=== PATIENT | female | born 1945 | race American Indian/Alaskan Native ===

== ENCOUNTER 2016-06-21 07:44 | Day surgery (SDC) | payer MEDICARE ==
[~2016-06-21 07:44] MED LIST: ANCEF/STERILE WATER 2 GM/20 ML 2 GM/20 ML SYRINGE IV NR; GELFOAM TP ONE; HEPARIN 10,000 UNITS/10 ML ONE; MARCAINE 0.25% INFILTRATI ONE; MARCAINE 0.5% 30 ML INFILTRATI ONE; NACL 0.9% 1000 ML 1,000 ML IV SCH; NACL 0.9% 250ML 500 ML ONE; NACL ONE; PAPAVERINE ONE; PROTAMINE SULFATE ONE; THROMBIN (BOVINE) TP ONE; XYLOCAINE 1% MPF 5 mL ONE; XYLOCAINE 1%/ EPI 1:100,000 INFILTRATI ONE
[2016-06-21] MEDS ORDERED: VERSED IV NR (08:00)
[2016-06-21] MEDS ORDERED: PEPCID PO NR (08:00)
[2016-06-21] MEDS ORDERED: DILAUDID IV PRN (08:55)
--- NOTE | 2016-06-21 08:56 | Anesthesia Day of Surgery ---
Anesthesia Day of Surgery - Day of Surgery Patient Examined: Yes Patient H&P Reviewed: Yes Patient is NPO: Yes
--- NOTE | 2016-06-21 08:56 | Anesthesia Consultation ---
Anesthesia Consult and Med Hx Date of service: 06/21/16 - Airway Anesthetic Teeth Evaluation: Good ROM Head & Neck: Adequate Mental/Hyoid Distance: Adequate Mallampati Class: Class II Intubation Access Assessment: Probably Good - Pulmonary Exam CTA: Yes - Cardiac Exam Cardiac Exam: RRR - Pre-Operative Health Status ASA Pre-Surgery Classification: ASA4 Nerve Block: IS - Pulmonary Hx Pneumonia: Yes - Cardiovascular System Hx Hypertension: Yes (30YRS) Hx Heart Attack/AMI: Yes (NSTEMI 1 month ago) Hx Percutaneous Transluminal Coronary Angioplasty (PTCA): Yes (x2) - Endocrine Hx End Stage Renal Disease: Yes (dialysis MWF) Hx Insulin Dependent Diabetes: Yes - Hematic Hx Anemia: Yes - Other Systems Hx Cancer: Yes
[2016-06-21] MEDS ORDERED: MARCAINE 0.25% INFILTRATI ONE (08:58)
[2016-06-21] MEDS ORDERED: XYLOCAINE 1% 20 mL ONE (08:58)
[2016-06-21] MEDS ORDERED: VERSED ONE (09:37)
[2016-06-21] MEDS ORDERED: SUBLIMAZE ONE (09:38)
[2016-06-21] MEDS ORDERED: ePHEDrine SULFATE ONE (10:23)
[2016-06-21] MEDS ORDERED: DIPRIVAN 10 MG/ML IV ONE (10:34)
[2016-06-21] MEDS ORDERED: NACL 0.9% IR ONE (10:51)
[2016-06-21] MEDS ORDERED: XYLOCAINE 1%/ EPI 1:100,000 INFILTRATI ONE (10:52)
[2016-06-21] MEDS ORDERED: HEPARIN 10,000 UNITS/10 ML 1,000 UNIT in NACL 0.9% 250ML 250 ML IR ONE (10:54)
[2016-06-21] MEDS ORDERED: MARCAINE 0.5% INFILTRATI ONE (10:54)
[2016-06-21] MEDS ORDERED: HEPARIN 10,000 UNITS/10 ML ONE (11:42)
--- NOTE | 2016-06-21 11:53 | Operative Report ---
Operative Report Operative Report: Date of procedure: 06/21/2016 Pre-operative diagnosis: Endstage renal disease Post-operative diagnosis: Same Procedure name(s): Left brachiobasilic fistula creation stage I. Surgeon: Gerald Ramirez MD, RPVI Terrazzo Polisher Helper: None Anesthesia: Gen./local Findings #1 adequate sized basilic vein. #2 adequate size brachial artery. #3 palpable thrill in the fistula. #4 palpable radial pulse. #5 adequate hemostasis. Specimens: None EBL: 10 mL IV fluids: 500 mL Urine output: 0 Disposition: The recovery Procedure Patient was brought to the operating room and laid on the table in supine position. After adequate sedation anesthesia was achieved the basilic vein was marked with an ultrasound. The patient was prepped and draped in usual sterile fashion. The ends reverse incision over the basilic vein right below the elbow was made using #15 blade. Subcutaneous tissue was divided with Bovie electrocautery. The basilic vein was located and dissected for the length of the incision. All branches were ligated using 4-0 silk ties. Once adequate length of the vein was dissected and the vein was completely mobilized attention was turned to the brachial artery. The brachial artery was dissected free and encircled with Vesseloops proximally and distally. Patient received 2000 units of heparin. The vein was disconnected distally below the elbow and irrigated with heparinized saline. The vein dilated very well. The artery was occluded with vessel loops proximally and distally the arteriotomy was made using #11 blade and Hobson scissors. The distal end of the vein was spatulated using Hobson scissors and anastomosis was created using 6-0 Prolene running suture. Prior to completion of the anastomosis back bleeding maneuvers were performed and there was good backbleeding from both sides size of the artery. Anastomosis was then was completed after it was irrigated with heparinized saline. Once the vessel loops were released there was strong thrill in the fistula and no bleeding. The wound was then closed using 3-0 Vicryl subcutaneous and 4-0 Monocryl subcuticular closure. Patient tolerated procedure well. At the end of the case all instrument, sponge, and needle counts were correct
--- NOTE | 2016-06-21 11:56 | Post Operative Note ---
Procedure: Date of procedure: 06/21/2016 Pre-operative diagnosis: Endstage renal disease Post-operative diagnosis: Same Procedure name(s): Right brachiobasilic fistula creation stage I. Surgeon: Gerald Ramirez MD, RPVI Application Defense Manager: None Anesthesia: Gen./local Findings #1 adequate sized basilic vein. #2 adequate size brachial artery. #3 palpable thrill in the fistula. #4 palpable radial pulse. #5 adequate hemostasis. Specimens: None EBL: 10 mL IV fluids: 500 mL Urine output: 0 Disposition: The recovery
--- NOTE | 2016-06-21 11:59 | Short Stay Summary ---
Short Stay Documentation - History H&P: obtained from office - Allergies and Medications Current Medications: Allergies Sulfa (Sulfonamide Antibiotics) Allergy (Verified 06/19/16 09:59) Itching adhesive tape Adverse Reaction (Verified 06/19/16 09:59) pulls her skin off paper hospital tape Home Medications Medication Instructions Recorded Confirmed Last Taken Type Aspirin [Adult Low Dose Aspirin EC] 81 mg PO QDAY 06/19/16 06/19/16 06/20/16 09: 00 History AtorvaSTATin [Lipitor] 80 mg PO QDAY 06/19/16 06/21/16 06/20/16 20:00 History Carvedilol [Carvedilol] 12.5 mg PO BID 06/19/16 06/21/16 06/20/16 09:00 History HYDROcodone/APAP 5-325 [[place] 1 each PO Q6HR PRN 06/19/16 06/21/16 06/14/16 History 5/325] Insulin Aspart Prot/Aspart 10 units SQ AC 06/19/16 06/21/16 06/20/16 21:00 History [Novolog Mix 70/30] 8 units Losartan [Cozaar] 50 mg PO QDAY 06/19/16 06/21/16 06/21/16 06:00 History Pantoprazole [Protonix] 40 mg PO QDAY 06/19/16 06/19/16 06/20/16 09:00 History Ticagrelor [Brilinta] 90 mg PO QDAY 06/19/16 06/19/16 06/20/16 09:00 History Active Medications Famotidine (Pepcid) 20 mg PO PREOP NR Stop: 06/21/16 23:59 Last Admin: 06/21/16 08:57 Dose: 20 mg Hydromorphone HCl (Dilaudid) 0.25 mg IV Q10MIN PRN PRN Reason: Pain, Moderate (4-6) Stop: 06/21/16 16:00 Cefazolin Sodium (Ancef/Sterile Water 2 Gm/20 Ml) 2 gm in 20 mls @ 80 mls/hr IV PREOP NR PRN Reason: Protocol Stop: 06/21/16 23:59 Sodium Chloride (Nacl 0.9% 1000 Ml) 1,000 mls @ 42 mls/hr IV DIRECT NATHAN Last Admin: 06/21/16 09:15 Dose: 42 mls/hr Midazolam HCl (Versed) 2 mg IV PREOP NR Stop: 06/21/16 23:59 Last Admin: 06/21/16 09:09 Dose: 2 mg - Brief post op/procedure progress note Procedure: Date of procedure: 06/21/2016 Pre-operative diagnosis: Endstage renal disease Post-operative diagnosis: Same Procedure name(s): Right brachiobasilic fistula creation stage I. Surgeon: Gerald Ramirez MD, RPVI Direct Response Consultant: None Anesthesia: Gen./local Findings #1 adequate sized basilic vein. #2 adequate size brachial artery. #3 palpable thrill in the fistula. #4 palpable radial pulse. #5 adequate hemostasis. Specimens: None EBL: 10 mL IV fluids: 500 mL Urine output: 0 Disposition: The recovery - Disposition Condition at discharge: Good Disposition: DISCHARGED TO HOME OR SELFCARE Short Stay Discharge Plan Activity: advance as tolerated (no heavy lifting with right arm for 6 weeks) Diet: renal Wound: open to air Additional Instructions: Please make an appointment with Dr. Ramirez in 2 weeks. Follow up with: ROSITA RIVERA MD [Primary Care Provider] - 7 Days
[2016-06-21] MEDS ORDERED: PERCOCET 5/325 PO NR (12:19)
--- NOTE | 2016-06-21 12:52 | Post Anesthesia Evaluation ---
- Post Anesthesia Evaluation Patient Participated: Yes Airway Patent: Yes Stable Respiratory Function: Yes Nausea/Vomiting: No Temp > 96.8F: Yes Pain Manageable: Yes Adequeate Hydration: Yes Anesthesia Complications: No Block Receding Appropriately: Not Applicable Patient on Ventilator: No
[2016-06-21] MEDS ORDERED: NORMODYNE IV NR ×2 (13:27→13:32)
[2016-06-21] MEDS ORDERED: HEPARIN IV NR (14:35)
[2016-06-21 18:39] VITALS: BP 132/63
== END 2016-06-21 15:40 | disposition home or self-care (01) ==
LOC: OR 07:44
PROVIDERS: ATTEND Surgery Vascular Surgery
DX: E11.22 Type 2 diabetes mellitus with diabetic chronic kidney disease (principal); I12.0 Hypertensive chronic kidney disease with stage 5 chronic kidney disease or end stage renal disease; N18.6 End stage renal disease; I25.2 Old myocardial infarction; D64.9 Anemia, unspecified; Z99.2 Dependence on renal dialysis; Z85.3 Personal history of malignant neoplasm of breast; Z90.710 Acquired absence of both cervix and uterus; Z90.12 Acquired absence of left breast and nipple; Z98.890 Other specified postprocedural states; Z82.49 Family history of ischemic heart disease and other diseases of the circulatory system; Z79.82 Long term (current) use of aspirin; Z79.899 Other long term (current) drug therapy; Z87.01 Personal history of pneumonia (recurrent); Z95.5 Presence of coronary angioplasty implant and graft
CPT/HCPCS: 36415; 36821; 82962; 84132; A4649; J0690; J1644; J2250; J2440; J2704; J3010; J7030; J7050; J1815; J2720

== ENCOUNTER 2016-09-20 09:25 | Day surgery (SDC) | payer MEDICARE ==
[~2016-09-20 09:25] MED LIST changes: -GELFOAM TP ONE; -HEPARIN 10,000 UNITS/10 ML ONE; -MARCAINE 0.25% INFILTRATI ONE; -MARCAINE 0.5% 30 ML INFILTRATI ONE; -NACL 0.9% 250ML 500 ML ONE; -NACL ONE; -PAPAVERINE ONE; -PROTAMINE SULFATE ONE; -THROMBIN (BOVINE) TP ONE; -XYLOCAINE 1% MPF 5 mL ONE; -XYLOCAINE 1%/ EPI 1:100,000 INFILTRATI ONE
--- NOTE | 2016-09-20 10:20 | Anesthesia Day of Surgery ---
Anesthesia Day of Surgery - Day of Surgery Patient Examined: Yes Patient H&P Reviewed: Yes Patient is NPO: Yes Beta Blockers: Yes
--- NOTE | 2016-09-20 10:20 | Anesthesia Consultation ---
Anesthesia Consult and Med Hx Date of service: 09/20/16 - Airway Anesthetic Teeth Evaluation: Good ROM Head & Neck: Adequate Mental/Hyoid Distance: Adequate Mallampati Class: Class II Intubation Access Assessment: Probably Good - Pulmonary Exam CTA: Yes - Cardiac Exam Cardiac Exam: RRR - Pre-Operative Health Status ASA Pre-Surgery Classification: ASA4 Proposed Anesthetic Plan: General - Pulmonary Hx Smoking: No Hx Asthma: No Hx Sleep Apnea: No - Cardiovascular System Hx Hypertension: Yes (30YRS) Hx Heart Attack/AMI: Yes (NSTEMI 04/2016) Hx Percutaneous Transluminal Coronary Angioplasty (PTCA): Yes (x2) - Central Nervous System CVA: Yes (2013, left arm weakness) Hx Psychiatric Problems: No - Gastrointestinal Hx Gastroesophageal Reflux Disease: Yes - Endocrine Hx Renal Disease: Yes Hx End Stage Renal Disease: Yes (last HD Sunday, right permacath) Hx Insulin Dependent Diabetes: Yes - Hematic Hx Anemia: Yes - Other Systems Hx Cancer: Yes (left breast 2006)
[2016-09-20 10:43] LABS: Hematocrit 35.5 % (30.3-42.9); Hemoglobin 11.5 gm/dl (10.1-14.3)
[2016-09-20] MEDS ORDERED: DIPRIVAN 10 MG/ML IV ONE (13:29)
[2016-09-20] MEDS ORDERED: DILAUDID ONE ×2 (13:29→18:38)
[2016-09-20] MEDS ORDERED: MARCAINE 0.5% INFILTRATI ONE ×3 (14:23→15:37)
[2016-09-20] MEDS ORDERED: NACL 0.9% 500 ML 500 ML ONE (14:24)
[2016-09-20] MEDS ORDERED: HEPARIN ONE (14:25)
[2016-09-20] MEDS ORDERED: ePHEDrine SULFATE ONE (15:16)
[2016-09-20] MEDS ORDERED: XYLOCAINE MPF 2% ONE (15:17)
[2016-09-20] MEDS ORDERED: NACL P/F VIAL (10 ML) 10 ML ONE (15:17)
[2016-09-20] MEDS ORDERED: NACL 0.9% 500 ML IV ONE (15:36)
[2016-09-20] MEDS ORDERED: NACL 0.9% IR ONE (15:36)
[2016-09-20] MEDS ORDERED: HEPARIN IV ONE ×2 (15:37→21:00)
[2016-09-20] MEDS ORDERED: HEPARIN 10,000 UNITS/10 ML ONE (15:44)
[2016-09-20] MEDS ORDERED: PROTAMINE SULFATE ONE (16:59)
[2016-09-20] MEDS ORDERED: ROBINUL ONE (17:01)
--- NOTE | 2016-09-20 17:38 | Operative Report ---
Operative Report Operative Report: Date of procedure: 09/19/2016 Pre-operative diagnosis: Endstage renal disease Post-operative diagnosis: Same Procedure name(s): Right brachiobasilic transposition fistula stage II. Surgeon: Gerald Ramirez MD, RPVI Finished Stock Inspector: None Anesthesia: Gen./local Findings #1 adequate sized basilic vein. #2 adequate size brachial artery. #3 the vein had gentle curve in the tunnel with no kinking. #4 palpable thrill in the fistula. #5 palpable radial pulse. #6 adequate hemostasis. Specimens: None EBL: 50 mL IV fluids: 700 mL Urine output: 0 Disposition: The recovery Indications: End-stage renal disease. Status post stage I brachiobasilic fistula creation. Procedure Patient was brought to the operating room and laid on the table in supine position. After general LMA anesthesia was achieved the basilic vein was marked with an ultrasound. The patient was prepped and draped in usual sterile fashion. The incision over the basilic vein above the elbow was made using #15 blade. Subcutaneous tissue was divided with Bovie electrocautery. The basilic vein was located and dissected for the length of the incision. All branches were ligated using 4-0 silk ties. The vein was dissected underneath the skin proximally to the site of the previous anastomosis to achieve adequate length. The incision was continued distally all the way to the axilla. The incision was deepened with Bovie electrocautery the basilic vein was dissected free the branches were ligated with 4-0 silk ties. The care was taken not to injure the brachial cutaneous nerves. The dissection continued cephalad all the way to where the basilic vein entered axillary vein. Once adequate length of the vein was dissected and the vein was completely mobilized attention was turned to the brachial artery. The incision over brachial artery above the elbow was made using #15 blade subcutaneous tissue was divided with Bovie electrocautery. The portion of the vein attached to the anastomosis was controlled with vessel loops. The curved tunneler was used to create a subcutaneous tunnel from the brachial artery to the basilic axillary confluence. The tunnel was made in the fashion to make sure that the vein will not kink. Patient received 3000 units of heparin. The vein was disconnected distally and irrigated with heparinized saline. The vein dilated very well . It was attached to the tunneler and tunneled underneath the skin. The care was made to confirm that there were no kink or twist in the tunnel. It was irrigated with heparinized saline and thrill felt that the other end. Both ends of the vein was spatulated using Hobson scissors .The anastomosis was created using two 6-0 Prolene running sutures. Prior to completion of the anastomosis back bleeding maneuvers were performed and there was good backbleeding. Anastomosis was then was completed after it was irrigated with heparinized saline. Once the vessel loops were released there was strong thrill in the fistula and no bleeding. The wounds were then closed using 3-0 Vicryl subcutaneous and 4-0 Monocryl subcuticular closure. The graft had strong palpable thrill. Patient tolerated procedure well. At the end of the case all instrument, sponge, and needle counts were correct.
--- NOTE | 2016-09-20 17:41 | Short Stay Summary ---
Short Stay Documentation - History H&P: obtained from office - Allergies and Medications Current Medications: Allergies Sulfa (Sulfonamide Antibiotics) Allergy (Verified 09/20/16 10:25) PULLS HER SKIN OFF PAPER TAPE Adverse Reaction (Uncoded 09/20/16 10:25) Unknown Home Medications Medication Instructions Recorded Confirmed Last Taken Type Aspirin [Adult Low Dose Aspirin EC] 81 mg PO QDAY 06/19/16 09/18/16 09/19/16 History AtorvaSTATin [Lipitor] 80 mg PO QDAY 06/19/16 09/18/16 09/19/16 History Carvedilol [Carvedilol] 12.5 mg PO BID 06/19/16 09/18/16 09/20/16 08:00 History Insulin Aspart Prot/Aspart(Nf) 10 units SQ AC 06/19/16 09/20/16 09/19/16 19:00 History [Novolog Mix 70/30] Losartan [Cozaar] 50 mg PO QDAY 06/19/16 09/18/16 09/20/16 08:00 History Pantoprazole [Protonix] 40 mg PO QDAY 06/19/16 09/18/16 09/19/16 History Ticagrelor [Brilinta] 90 mg PO QDAY 06/19/16 09/18/16 09/20/16 08:00 History oxyCODONE /ACETAMINOPHEN [Percocet 1 - 2 tab PO Q4HR #40 tab 06/21/16 09/20/16 09/02/16 Rx 5/325] Sevelamer Carbonate [Renvela] 800 mg PO AC 09/18/16 09/18/16 09/19/16 History Active Medications Cefazolin Sodium (Ancef/Sterile Water 2 Gm/20 Ml) 2 gm in 20 mls @ 80 mls/hr IV PREOP NR PRN Reason: Protocol Stop: 09/20/16 23:59 Sodium Chloride (Nacl 0.9% 1000 Ml) 1,000 mls @ 42 mls/hr IV DIRECT NATHAN Last Admin: 09/20/16 10:08 Dose: 42 mls/hr Desmopressin Acetate 22.04 mcg (/ Sodium Chloride) 55.51 mls @ 100 mls/hr IV ONCE ONE Stop: 09/20/16 18:33 - Brief post op/procedure progress note Procedure: Pre-operative diagnosis: Endstage renal disease Post-operative diagnosis: Same Procedure name(s): Right brachiobasilic transposition fistula stage II. Surgeon: Gerald Ramirez MD, RPVI Supervisor Finishing: None Anesthesia: Gen./local Findings #1 adequate sized basilic vein. #2 adequate size brachial artery. #3 the vein had gentle curve in the tunnel with no kinking. #4 palpable thrill in the fistula. #5 palpable radial pulse. #6 adequate hemostasis. Specimens: None EBL: 50 mL IV fluids: 700 mL Urine output: 0 Disposition: The recovery - Disposition Condition at discharge: Good Disposition: DC-01 TO HOME OR SELFCARE Short Stay Discharge Plan Activity: advance as tolerated, other (no heavy lifting with right arm for 6 weeks.) Diet: renal Wound: open to air Additional Instructions: Follow up with Dr. Ramirez in 2 weeks. Follow up with: ROSITA RIVERA MD [Primary Care Provider] - 7 Days
[2016-09-20] MEDS ORDERED: ZOFRAN ONE ×2 (17:53→18:24)
[2016-09-20] MEDS ORDERED: DDAVP IV ONE (18:00)
[2016-09-20] MEDS ORDERED: NACL 0.9% IV ONE (18:00)
[2016-09-20] MEDS ORDERED: ZOFRAN IV PRN (18:53)
[2016-09-20] MEDS ORDERED: REGLAN IV PRN (18:53)
[2016-09-20] MEDS ORDERED: DILAUDID IV PRN (18:53)
[2016-09-20] MEDS ORDERED: REGLAN ONE (18:57)
[2016-09-20] MEDS ORDERED: HEPARIN 10,000 UNITS/10 ML IV PRN (20:01)
[2016-09-20 21:16] VITALS: BP 101/41
== END 2016-09-20 20:40 | disposition home or self-care (01) ==
LOC: OR 09:25
PROVIDERS: ATTEND Surgery Vascular Surgery
DX: E11.22 Type 2 diabetes mellitus with diabetic chronic kidney disease (principal); I12.0 Hypertensive chronic kidney disease with stage 5 chronic kidney disease or end stage renal disease; N18.6 End stage renal disease; I25.2 Old myocardial infarction; K21.9 Gastro-esophageal reflux disease without esophagitis; D64.9 Anemia, unspecified; Z95.5 Presence of coronary angioplasty implant and graft; Z86.73 Personal history of transient ischemic attack (TIA), and cerebral infarction without residual deficits; Z85.3 Personal history of malignant neoplasm of breast; Z90.710 Acquired absence of both cervix and uterus; Z90.12 Acquired absence of left breast and nipple; Z98.890 Other specified postprocedural states; Z88.2 Allergy status to sulfonamides; Z91.09 Other allergy status, other than to drugs and biological substances; Z79.899 Other long term (current) drug therapy; Z79.4 Long term (current) use of insulin; Z82.49 Family history of ischemic heart disease and other diseases of the circulatory system
CPT/HCPCS: 36415; 36819; 82962; 84132; 85014; 85018; J0690; J1170; J1644; J2405; J2597; J2704; J2720; J2765; J7030; J7040; C9250